=== PATIENT | male | born 1940 | race Hispanic/Latino ===

== ENCOUNTER → 2019-10-09 | Outpatient (CLI) | payer OTHER ==
[~2019-10-09] MED LIST: AMLO10TA7 PO; CEFTRIAXONE SODIUM 1 GM IVP SCH; DOCU-116 PO; METO50TA18 PO; PRAV20TA4 PO
== END | disposition home or self-care (01) ==
LOC: RAH 11:02
PROVIDERS: ATTEND Family Medicine
DX: I70.0 Atherosclerosis of aorta (principal); H53.2 Diplopia; I12.9 Hypertensive chronic kidney disease with stage 1 through stage 4 chronic kidney disease, or unspecified chronic kidney disease; N18.9 Chronic kidney disease, unspecified
CPT/HCPCS: 93880

== ENCOUNTER → 2021-11-24 | Outpatient (CLI) | payer OTHER ==
[~2021-11-24] MED LIST changes: +AMLO-258 PO; -AMLO10TA7 PO; -CEFTRIAXONE SODIUM 1 GM IVP SCH
[2021-11-24 12:51] LABS: ALBUMIN 4.1 g/dL (3.5-5.0); BILIRUBIN,TOTAL 0.5 mg/dL (0.2-1.0); CREATININE 1.9 mg/dL (0.5-1.5); POTASSIUM 4.6 mmol/L (3.5-5.1); TOTAL PROTEIN, SERUM 7.7 g/dL (6.0-8.3)
== END | disposition home or self-care (01) ==
LOC: LAB 08:37
PROVIDERS: ATTEND Internal Medicine Cardiovascular Disease
DX: I10 Essential (primary) hypertension (principal)
CPT/HCPCS: 36415; 80053

== ENCOUNTER → 2021-12-07 | Outpatient (CLI) | payer OTHER ==
[~2021-12-07] MED LIST changes: +IOHEXOL 350 MG/ML 100ML INFUS..BTL IV ONE
== END | disposition home or self-care (01) ==
LOC: RAH 10:25
PROVIDERS: ATTEND Internal Medicine Cardiovascular Disease
DX: I77.811 Abdominal aortic ectasia (principal); I71.4 Abdominal aortic aneurysm, without rupture; I70.0 Atherosclerosis of aorta; K76.9 Liver disease, unspecified; D18.03 Hemangioma of intra-abdominal structures; Q25.46 Tortuous aortic arch; N28.1 Cyst of kidney, acquired; N26.1 Atrophy of kidney (terminal)
CPT/HCPCS: 74174; Q9967

== ENCOUNTER → 2022-11-03 | Outpatient (CLI) | payer OTHER ==
[~2022-11-03] MED LIST changes: -IOHEXOL 350 MG/ML 100ML INFUS..BTL IV ONE
[2022-11-03 15:49] LABS: CREATININE 2.5 mg/dL (0.5-1.5)
== END | disposition home or self-care (01) ==
LOC: LAB 11:56
PROVIDERS: ATTEND Internal Medicine Cardiovascular Disease
DX: I13.0 Hypertensive heart and chronic kidney disease with heart failure and stage 1 through stage 4 chronic kidney disease, or unspecified chronic kidney disease (principal); N18.2 Chronic kidney disease, stage 2 (mild); I71.40 Abdominal aortic aneurysm, without rupture, unspecified
CPT/HCPCS: 36415; 82565; 84520

== ENCOUNTER → 2022-12-25 | Outpatient (CLI) | payer OTHER ==
[2022-12-25 16:52] LABS: ALBUMIN 3.6 g/dL (3.5-5.0); CREATININE 2.4 mg/dL (0.5-1.5); POTASSIUM 4.7 mmol/L (3.5-5.1); TOTAL PROTEIN, SERUM 6.7 g/dL (6.0-8.3)
== END | disposition home or self-care (01) ==
LOC: LAB 15:45
PROVIDERS: ATTEND Internal Medicine Cardiovascular Disease
DX: I12.9 Hypertensive chronic kidney disease with stage 1 through stage 4 chronic kidney disease, or unspecified chronic kidney disease (principal); N18.32 Chronic kidney disease, stage 3b; I73.9 Peripheral vascular disease, unspecified
CPT/HCPCS: 36415; 80053; 83880

== ENCOUNTER → 2023-01-06 | Outpatient (CLI) | payer OTHER | END | disposition home or self-care (01) | LOC: SHCH 08:22 | PROVIDERS: ATTEND Internal Medicine Cardiovascular Disease | DX: I87.2 Venous insufficiency (chronic) (peripheral) (principal) | CPT/HCPCS: 93970 ==

== ENCOUNTER → 2023-01-13 | Outpatient (CLI) | payer OTHER | END | disposition home or self-care (01) | LOC: SHCH 09:27 | PROVIDERS: ATTEND Internal Medicine Cardiovascular Disease | DX: I71.40 Abdominal aortic aneurysm, without rupture, unspecified (principal) | CPT/HCPCS: 93978 ==

== ENCOUNTER → 2023-07-27 | Outpatient (CLI) | payer OTHER | END | disposition home or self-care (01) | LOC: SHCH 07:42 | PROVIDERS: ATTEND Internal Medicine Cardiovascular Disease | DX: I71.40 Abdominal aortic aneurysm, without rupture, unspecified (principal) | CPT/HCPCS: 93978 ==

== ENCOUNTER → 2023-12-10 | Outpatient (CLI) | payer OTHER | END | disposition home or self-care (01) | LOC: SHCH 08:00 | PROVIDERS: ATTEND Internal Medicine Cardiovascular Disease | DX: I71.40 Abdominal aortic aneurysm, without rupture, unspecified (principal) | CPT/HCPCS: 93978 ==

== ENCOUNTER → 2024-05-20 | Outpatient (CLI) | payer OTHER ==
--- NOTE | 2024-05-26 00:47 | HMCSR ---
APPROVED REPORT Duplex Results A/PTransverseLongitudinalVelocityWaveform Proximal Aorta 1.99cm2.21cm2.24cm79.30 cm/sec Mid Aorta 3.04cm2.86cm3.01cm41.40 cm/sec Distal Aorta 5.11cm5.51cm5.40cm21.40 cm/sec Rt. Common Iliac Artery1.58cm1.38cm1.31cm69.20 cm/sec Lt. Common Iliac Artery 1.48cm1.39cm1.29cm86.10 cm/sec Techologist Impression There is evidence of an infrarenal abdominal aortic aneurysm measuring largest at 5.11 cm x 5.51 cm x 5.4 cm. The distal abdominal aorta appears tortuous with mild intraluminal thrombus. The bilateral common iliac arteries appear patent and normal in size. Conclusion There is a large abdominal aortic aneurysm in the distal aorta that measures 5.2 x 5.6 x 5.5 cm. There appears to be intraluminal thrombus within the aneurysm. The bilateral common iliac arteries appear patent and normal in size. The aneurysm has grown in size from July 27, 2023, when it measured 5.2 x 4.7 x 4.6 cm. Clinical correlation is advised. Conclusion There is a large abdominal aortic aneurysm in the distal aorta that measures 5.2 x 5.6 x 5.5 cm. There appears to be intraluminal thrombus within the aneurysm. The bilateral common iliac arteries appear patent and normal in size. The aneurysm has grown in size from July 27, 2023, when it measured 5.2 x 4.7 x 4.6 cm. Clinical correlation is advised.
== END | disposition home or self-care (01) ==
LOC: SHCH 08:02
PROVIDERS: ATTEND Internal Medicine Cardiovascular Disease
DX: I71.40 Abdominal aortic aneurysm, without rupture, unspecified (principal)
CPT/HCPCS: 93978

== ENCOUNTER → 2024-05-26 | Outpatient (CLI) | payer OTHER ==
[2024-05-26 16:28] LABS: CREATININE 2.2 mg/dL (0.5-1.3); POTASSIUM 5.2 mmol/L (3.5-5.1)
== END | disposition home or self-care (01) ==
LOC: LAB 15:05
PROVIDERS: ATTEND Internal Medicine Cardiovascular Disease
DX: I73.9 Peripheral vascular disease, unspecified (principal)
CPT/HCPCS: 36415; 80048

== ENCOUNTER 2024-05-31 20:01 | Emergency (ER) | payer OTHER ==
[~2024-05-31] VITALS: Ht 180.3 cm; Wt 68.9 kg
[2024-05-31] MEDS: hydrALAZine 20MG/ML VIAL IV ONE ×2 (20:15→21:19)
--- NOTE | 2024-05-31 20:21 | ERN ---
ED Note History of Present Illness Stated Complaint: HTN, HEADACHE Chief Complaint: Hypertension Time Seen by MD: 20:17 Dictation: This is an 84-year-old male who presented to the emergency room with complaints of high blood pressure. Apparently he is normally checks his blood pressure every day and as usual when he had a slight frontal headache upon his blood pressure check it was 200/100. Given this he was concerned and came into the ER for further evaluation. He denied any blurred vision diplopia motor weakness seizure activity. Also denied any facial droop slurred speech. Blood pressure is 189/100 heart rate 67 respirations 18 temperature 99.4 with a pulse oximetry of 97% on room air His chronic medical problems include hypertension, chronic kidney disease and en larged aorta details are unclear Allergies: Coded Allergies: No Known Allergies (Unverified Allergy, Unknown, 05/31/24) Home Meds Active Scripts Docusate Sodium (Colace) 100 Mg Capsule, 100 MG PO BID for 14 Days, #28 CAP 0 Refills Prov:JOAN LOPEZ NP 04/19/19 Reported Medications Metoprolol Tartrate (Metoprolol Tartrate) 50 Mg Tablet, 50 MG PO AM, TAB 12/22/14 Pravastatin Sodium (Pravastatin Sodium) 20 Mg Tablet, 20 MG PO AM, TAB 15 Amlodipine Besylate (Amlodipine Besylate) 10 Mg Tablet, 10 MG PO AM, TAB 12/22/14 Past Medical History Past Medical History: Hypertension, Renal Disese, Other Additional Past Medical Hx: ENLARGED AORTA Surgical History: None Family History: Negative Social History: Negative RN Note Reviewed/Agreed w/PFSH: Yes Review of System Dictation Constitutional: Negative for fever,chills, and weight loss Eyes: Negative for injury, pain,redness, and discharge ENT: Negative for injury,pain or swelling Cardiovascular: Negative for chest pain, palpitations, and edema Respiratory: Negative for shortness of breath, cough, and wheezing, Abdomen/GI: Negative for abdominal pain, nausea, vomiting, diarrhea, and constipation Back: Negative for injury and pain : Negative for injury, bleeding and discharge MS/Extremity: Negative for injury and deformity Skin: Negative for rash, and discoloration Neuro: Negative for headache, weakness, numbness, tingling, and seizure Psych: Negative for suicide ideation, homicidal ideation, and hallucinations Initial Vital Sign VS Vital Signs Date Time Temp Pulse Resp B/P (MAP) Pulse Ox O2 Delivery O2 Flow Rate FiO2 05/31/24 20:03 99.3 67 18 189/100 97 Room Air 05/31/24 20:13 0 21 Physical Exam Dictation General: awake, alert, NAD Head/Face: Normocephalic, atraumatic Eyes: PERRL, EOMI, vision at baseline ENT: oral cavity clear, TMs clear, no signs of infection Neck: Trachea midline, supple, no nuchal rigidity Cardiovascular: RRR, normal S1/S2, No MRGs, no JVD Respiratory: CTAB, no respiratory distress, No rales or wheezes Abdomen: Soft, non-tender, non-distended, normal bowel sounds, no guarding or rebound. Skin: Warm, dry, normal turgor, no rash MS/Extremity: Pulses equal, no cyanosis, neurovascular intact, FROM Neuro: COAx4, GCS 15, strength 5/5, CN 2-12 intact, normal cerebellar exam, normal gait, Psych: Normal behavior, mood, and affect normal Extremities-trace edema without any palpable cords, Homans sign is negative Results (Laboratory/Radiology) Laboratory/Radiology Laboratory Tests Test 05/31/24 20:10 05/31/24 21:24 White Blood Count 6.8 K/uL (4.8-10.8) Red Blood Count 3.35 MIL/uL (4.50-6.20) L Hemoglobin 11.0 g/dL (14.0-18.0) L Hematocrit 33.0 % (42-54) L Mean Corpuscular Volume 98.5 fL (79-99) Mean Corpuscular Hemoglobin 32.8 pg (27.0-33.0) Mean Corpuscular Hemoglobin Concent 33.3 g/dL (32.0-36.0) Red Cell Distribution Width 13.2 % (11.0-15.5) Platelet Count 104 K/uL (130-400) L Mean Platelet Volume 12.3 fL (7.5-10.5) H Immature Granulocyte % (Auto) 0.4 % (0-1) Neutrophils (%) (Auto) 57.7 % (40.0-77.0) Lymphocytes (%) (Auto) 21.5 % (21.0-51.0) Monocytes (%) (Auto) 8.6 % (3.0-13.0) Eosinophils (%) (Auto) 11.1 % (0.0-8.0) H Basophils (%) (Auto) 0.7 % (0.0-5.0) Neutrophils # (Auto) 3.9 K/uL (1.8-7.7) Lymphocytes # (Auto) 1.5 K/uL (1.0-4.8) Monocytes # (Auto) 0.6 K/uL (0.1-1.0) Eosinophils # (Auto) 0.75 K/uL (0.00-0.70) H Basophils # (Auto) 0.05 K/uL (0.00-0.20) Absolute Immature Granulocyte (auto 0.03 K/uL (0-1) Nucleated Red Blood Cells 0.0 % (0.0-0.19) White Cell Morphology Comment See comments Prothrombin Time 11.4 SEC (9.6-11.6) Prothromb Time International Ratio 1.06 (0.85-1.15) Activated Partial Thromboplast Time 30.5 SEC (26.3-35.5) Sodium Level 142 mmol/L (136-145) Potassium Level 4.6 mmol/L (3.5-5.1) Chloride Level 108 mmol/L (101-111) Carbon Dioxide Level 25 mmol/L (21-32) Blood Urea Nitrogen 36 mg/dL (7-18) H Creatinine 2.8 mg/dL (0.5-1.3) H Glomerular Filtration Rate Calc 22 mL/min (>90) Random Glucose 95 mg/dL (70-105) Total Calcium 8.1 mg/dL (8.5-10.1) L Troponin I High Sensitivity 12 ng/L (4-75) B-Type Natriuretic Peptide 268 pg/mL (0-100) H Urine Color COLORLESS (YELLOW) Urine Appearance CLEAR (CLEAR) Urine pH 6.5 (5.0-8.0) Urine Specific [place] 1.005 (1.001-1.031) Urine Protein NEGATIVE mg/dL (NEGATIVE) Urine Glucose (UA) NEGATIVE mg/dL (NEGATIVE) Urine Ketones NEGATIVE mg/dL (NEGATIVE) Urine Occult Blood NEGATIVE (NEGATIVE) Urine Nitrate NEGATIVE (NEGATIVE) Urine Bilirubin NEGATIVE mg/dL (NEGATIVE) Urine Urobilinogen 0.2 mg/dL (0.2-1.0) Urine Leukocyte Esterase NEGATIVE Angélica/uL Urine RBC 2-5 /HPF (0-1) H Urine WBC 0-1 /HPF (0-1) Urine Bacteria None /HPF (None Seen) Labs Reviewed?: Yes EKG Comment: Twelve lead EKG done on 05/31/2024 at 8:11 p.m. showed a sinus rhythm with a heart rate of 55 FL 157 QRS 94, QT/QTC 447/428. Impression sinus bradycardia with nonspecific ST-T changes noted. Left anterior fascicular block possible. Interpreted by ER MD Dr. Wong X-RAY Comment: PATIENT: BELA HAMLIN MR#: [id number] : 1940 SEX: M AGE: 84 LOCATION: [facility] ORDER 12 STATUS: REG ER REPORT#: [id number] SERVICE 11 REASON: HYPERTENSION ORDERING PHYSICIAN: SHEELA WONG MD PROCEDURE: CXR1VW - CHEST 1VW INDICATION: HYPERTENSION TECHNIQUE: CHEST 1VW COMPARISON: 12/29/2011 FINDINGS/IMPRESSION: Prominent bilateral interstitial markings which may represent bronchitis or vascular congestion in the proper clinical setting. Cardiac silhouette is within normal limits. Mild degenerative changes of the spine. The visualized upper abdomen appears unremarkable. DICTATED BY: MOISE MACHADO MD DATE: 05/31/242127 ELECTRONICALLY SIGNED BY: MOISE MACHADO MD DATE: 05/31/242130 ED Course ED Course Orders Procedure Category Date Status Time 12 Lead Ekg Tracing- EKG 05/31/24 Logged Technical 20:12 Cbc With Differential LAB 05/31/24 Complete 20:12 Basic Metabolic Panel LAB 05/31/24 Complete 20:12 Pt And Ptt LAB 05/31/24 Complete 20:12 Troponin I High LAB 05/31/24 Complete Sensitivity 20:12 B-Type Natriuretic LAB 05/31/24 Complete Peptide 20:12 Chest 1vw RAD 05/31/24 Resulted 20:12 Hydralazine 20mg Inj PHA 05/31/24 Complete (Apresoline 20mg In 20:30 Hydralazine 20mg Inj PHA 05/31/24 Complete (Apresoline 20mg In 20:14 Urinalysis Profile LAB 05/31/24 Complete 20:23 Hydralazine 20mg Inj PHA 05/31/24 Complete (Apresoline 20mg In 21:30 Current Medications Medications (Trade) Dose Ordered Sig/Danna Route PRN Reason Start Time Stop Time Status Last Admin Dose Admin Hydralazine HCl (APRESOLine 20MG INJ) 10 mg ONCE ONCE IV 05/31/24 20:30 05/31/24 20:31 DC 05/31/24 20:15 Hydralazine HCl (APRESOLine 20MG INJ) 20 mg ONCE ONCE IV 05/31/24 21:30 05/31/24 21:31 DC 05/31/24 21:19 Hydralazine HCl (APRESOLine 20MG INJ) 20 mg STK-MED ONCE .ROUTE 05/31/24 20:14 05/31/24 20:14 DC Vital Signs Date Time Temp Pulse Resp B/P (MAP) Pulse Ox O2 Delivery O2 Flow Rate FiO2 05/31/24 21:39 98.2 56 16 159/75 98 Room Air* 0 21 05/31/24 20:47 98.2 60 16 178/85 98 Room Air* 0 21 05/31/24 20:13 97.9 57 18 201/92 98 Room Air* 0 21 05/31/24 20:03 99.3 67 18 189/100 97 Room Air We will perform diagnostic labs, advanced imaging and administer medications according to the patient's complaint. Once the results are available, will review and personally interpreted the labs to rule out any acute life- threatening emergency the trach require immediate intervention and treatment. I will then re-evaluate the patient after treatment and diagnostic exams have return to determine whether the patient requires any further testing, can safely be discharged home or need further admission to hospital for additional treatment and evaluation. Reviewed labs CBC showed mild anemia which is chronic. BNP 7 showed a BUN and creatinine of 36 and 2.8 which is about the baseline. Patient responded very well to low-dose hydralazine and blood pressure improved significantly and he wanted to be discharged to home to follow up with his primary care physician. Medical Decision Making MDM MDM: Differential diagnosis: Uncontrolled hypertension, hypertensive urgency, hype rtensive heart disease, diastolic dysfunction Rationale: Tests considered and ordered secondary to shared decision making include: Previous outside records reviewed: Old ER visits. Risk of complication and/or morbidity or mortality of patient management: None Medications-Per medication reconciliation Need for hospitalization: Patient does not meet criteria for hospitalization. Need for emergency major/minor surgery: No There are no social concerns with this patient. Prescription drug management Prescriptions will include symptomatic care Patient's prior external medical records from other ER visits were reviewed by me as indicated. Prior testing and results from previous visits were reviewed. Prior tests were taken into account with medical decision making and resource utilization, independent historian/historians were used to obtain complete medical history. I independently interpreted the test that were performed, results were reviewed by me and considered findings on radiology if ordered. Medical management and examination interpretation discussions were had by me with other qualified healthcare professionals as indicated for the patient's care. Problem List Problem List: (1) Hypertensive urgency (2) Uncontrolled hypertension (3) Chronic kidney disease DX & DISP Disposition: Discharge Departure Impression: Primary Impression: Uncontrolled hypertension Additional Impressions: Hypertensive urgency, Chronic kidney disease (CKD) Condition: Stable Additional Instructions: Patient and the caregiver have been informed of all the diagnostic tests and the imaging conducted during the today's visit to the emergency room and has verbalized understanding of the results I have personally reviewed and interpreted all diagnostic exams performed here in the ER today as well as the vital signs documented by the nursing staff. The patient is now being discharged to home and should follow up with the primary care physician or the specialist as directed by the ER staff. Follow-up with primary care provider in 1 to 2 days. Take medications as directed here in the emergency room. Okay to continue home medications unless otherwise discussed during your visit in the emergency room today. Return to your nearest emergency room if symptoms worsen or if there is no improvement. Call 911 if you need immediate assistance. Take Tylenol or Motrin [id number] as needed and if no contraindications are present. Increase oral hydration. A wound culture or urine culture was ordered here in the emergency room department please follow-up with primary care provider and advise them to get repeat ports from our facility. If you had any [place] wrap/splints that were applied here, please do not remove them until you see your primary care or specialty. If patient continues to have increasing episodes of hypertension, primary care physician to consider PRN clonidine if appropriate Also reasonable to pursue outpatient polysomnography to evaluate untreated CAITY as a cause of uncontrolled hypertension. Referrals: ENRIQUE PATEL MD (PCP) SHEELA WONG MD May 31, 2024 20:21
[2024-05-31] MEDS: hydrALAZine 20MG/ML VIAL ONE (20:22)
[2024-05-31 20:38] LABS: BASOPHILS # (AUTO) 0.05 K/uL (0.00-0.20); BASOPHILS % (AUTO) 0.7 % (0.0-5.0); EOSINOPHILS # (AUTO) 0.75 K/uL (0.00-0.70); EOSINOPHILS % (AUTO) 11.1 % (0.0-8.0); IMMATURE GRANULOCYTE ABSOLUTE 0.03 K/uL (0-1); LYMPHOCYTES # (AUTO) 1.5 K/uL (1.0-4.8); LYMPHOCYTES % (AUTO) 21.5 % (21.0-51.0); MEAN CORPUSCULAR HEMOGLOBIN 32.8 pg (27.0-33.0); MEAN CORPUSCULAR HGB CONC 33.3 g/dL (32.0-36.0); MEAN CORPUSCULAR VOLUME 98.5 fL (79-99); MONOCYTES # (AUTO) 0.6 K/uL (0.1-1.0); MONOCYTES % (AUTO) 8.6 % (3.0-13.0); NEUTROPHILS # (AUTO) 3.9 K/uL (1.8-7.7); NEUTROPHILS % (AUTO) 57.7 % (40.0-77.0); PLATELET COUNT (AUTO) 104 K/uL (130-400); RED BLOOD CELL COUNT(AUTO) 3.35 MIL/uL (4.50-6.20); RED CELL DISTRIBUTION WIDTH 13.2 % (11.0-15.5); WHITE BLOOD COUNT (AUTO) 6.8 K/uL (4.8-10.8)
[2024-05-31 20:47] LABS: CREATININE 2.8 mg/dL (0.5-1.3); POTASSIUM 4.6 mmol/L (3.5-5.1)
[2024-05-31 20:52] LABS: INR 1.06 (0.85-1.15); PROTHROMBIN TIME 11.4 SEC (9.6-11.6)
[2024-05-31 20:54] LABS: PARTIAL THROMBOPLASTIN TIME 30.5 SEC (26.3-35.5)
[2024-05-31 20:57] LABS: B-TYPE NATRIURETIC PEPTIDE 268 pg/mL (0-100)
--- NOTE | 2024-05-31 21:31 | HMCIMG ---
INDICATION: HYPERTENSION TECHNIQUE: CHEST 1VW COMPARISON: 12/29/2011 FINDINGS/IMPRESSION: Prominent bilateral interstitial markings which may represent bronchitis or vascular congestion in the proper clinical setting. Cardiac silhouette is within normal limits. Mild degenerative changes of the spine. The visualized upper abdomen appears unremarkable.
[2024-05-31 21:39] VITALS: BP 159/75; PULSE 56; RESP 16; TEMP 98.3; O2SAT 98
[2024-05-31 21:42] LABS: APPEARANCE,URINE CLEAR (CLEAR); BILIRUBIN,URINE NEGATIVE (NEGATIVE); COLOR,URINE COLORLESS (YELLOW); GLUCOSE, URINE (UA) NEGATIVE (NEGATIVE); KETONES,URINE NEGATIVE (NEGATIVE); LEUKOCYTE ESTERASE ,URINE NEGATIVE Leu/uL (NEGATIVE); NITRATE,URINE NEGATIVE (NEGATIVE); OCCULT BLOOD,URINE NEGATIVE (NEGATIVE); PH,URINE 6.5 (5.0-8.0); PROTEIN,URINE NEGATIVE (NEGATIVE); UROBILINOGEN,URINE 0.2 mg/dL (0.2-1.0)
[2024-05-31 21:43] LABS: ADD UA MICROSCOPIC YES
[2024-05-31 21:44] LABS: WBC,URINE 0-1 /HPF (0-1)
--- NOTE | 2024-06-01 06:59 | EKG ---
[facility] Test Date: 2024-05-31 Test Time: 20:11:24 Pat Name: BELA HAMLIN Department: ED Room: Gender: M Special Events Assistant: [id number] : 1940 Requested By: SHEELA RODRIGUEZ Order Number: [id number] Reading MD: Mirta Curiel Measurements Intervals [place] Rate: 55 P: 61 NV: 157 QRS: -46 QRSD: 94 T: 44 QT: 447 QTc: 428 Interpretive Statements Sinus rhythm LAD, consider left anterior fascicular block Compared to ECG 04/17/2019 19:51:43 Sinus bradycardia no longer present Electronically Signed On 06-01-2024 08:20:56 TUCKPOINTER by Mirta Curiel Please click the below link to view image of tracing.
== END 2024-05-31 22:42 | disposition home or self-care (01) ==
LOC: EDH 20:01
DX: I12.9 Hypertensive chronic kidney disease with stage 1 through stage 4 chronic kidney disease, or unspecified chronic kidney disease (principal); N18.9 Chronic kidney disease, unspecified; I16.0 Hypertensive urgency; Z79.899 Other long term (current) drug therapy
CPT/HCPCS: 99285; 96374; 71045; 84484; 80048; 83880; 85025; 85610; 85730; 81001; 36415; 96376; 93005; J0360 ×2

== ENCOUNTER 2024-06-01 14:30 | Emergency (ER) | payer OTHER ==
[~2024-06-01] VITALS: Ht 180.3 cm; Wt 69.9 kg
[2024-06-01 15:53] VITALS: BP 154/74; PULSE 57; RESP 20; TEMP 98.5; O2SAT 98
--- NOTE | 2024-06-01 15:58 | ERN ---
General Chief Complaint: Hypertension Stated Complaint: HYPERTENSION Time Seen by MD: 14:32 Source: patient History of Present Illness Initial Comments Patient is a an 84-year-old male coming in to be evaluated for elevated blood pressure. Per family member and patient he was diagnosed with hypertension many years ago has been on the same medications but noticed that two weeks ago he started having increased episodes hypertension. Per patient he was seen here yesterday was given some medications for hypertension and was discharged. He states he checked his blood pressure and was in the 200 systolic he was then jolly cked his blood pressure again in his in the 150s. In triage patient's blood pressure has been in the 160s. Allergies: Coded Allergies: No Known Allergies (Unverified Allergy, Unknown, 05/31/24) Home Meds Active Scripts Docusate Sodium (Colace) 100 Mg Capsule, 100 MG PO BID for 14 Days, #28 CAP 0 Refills Prov:JOAN LOPEZ NP 04/19/19 Reported Medications Metoprolol Tartrate (Metoprolol Tartrate) 50 Mg Tablet, 50 MG PO AM, TAB 12/22/14 Pravastatin Sodium (Pravastatin Sodium) 20 Mg Tablet, 20 MG PO AM, TAB 15 Amlodipine Besylate (Amlodipine Besylate) 10 Mg Tablet, 10 MG PO AM, TAB 12/22/14 Past Medical History Past Medical History: Hypertension, Renal Disese, Other Medical History Other: ENLARGED AORTA Past Surgical History: None Family History Family History: Negative Social History Social History: Negative ROS Dictation CONSTITUTIONAL: No chills, no fever, no weakness, no diaphoresis, no malaise. HEAD/FACE: No signs of trauma. EENT: No eye pain, no blurred vision, no tearing, no double vision, no ear pain, no ear discharge, no nose pain, no nasal congestion, no throat pain, no throat swelling, no mouth pain. RESPIRATORY: No cough, no orthopnea, no SOB, no stridor, no wheezing. CARDIOVASCULAR: No chest pain, no edema, no palpitations, no syncope. GASTROINTESTINAL/ABDOMINAL: No abdominal pain, no constipation, no diarrhea, no nausea, no vomiting. GENITOURINARY: No abnormal discharge, no dysuria, no frequent urination, no hematuria. No complaints of pain in the genitals. MUSCULOSKELETAL: No back pain, no gout, no joint pain, no joint swelling, no muscle pain, no muscle stiffness, no neck pain. INTEGUMENTARY: No change in color, no change in hair/nails, no dryness, no lesion, no lumps, no rash. NEUROLOGICAL/PSYCH: No anxiety, not depressed, no emotional problem, no headache, no numbness, no pre-existing deficit, no history of seizures, no tremors, no weakness. HEMATOLOGIC/LYMPHATIC: Not anemic, no history of blood clots, no apparent bleeding, no bruising, glands not swollen. All Systems Negative, Except as Noted. Physical Exam Physical Exam Dictation VITAL SIGNS: Reviewed. GENERAL APPEARANCE: Alert, oriented x3, no acute distress, obese. HEAD AND FACE: Non-traumatic. EYES: PERRL, pink conjunctivas, eyelid no trauma, anterior chamber clear. EARS: Pinnas intact and no signs of trauma or erythema. Ear canals clear and no discharge. TMs no erythema. NOSE: No discharge, no bleeding. OROPHARYNX: Mouth normal, teeth no caries, tongue pink. Pharynx clear, no erythema. Tonsils no exudates, no abscesses noted. Mucous membrane moist. NECK: Supple, non-tender, no thyromegaly, no masses, no JVD, no bruits. BREAST: Deferred. CHEST: No tenderness, no crepitus, no paradoxical movement, no retractions. LUNGS: Clear, well-ventilated, symmetric, no rales, no wheezing, no rhonchi, no stridor, good breath sounds bilaterally. HEART: Regular rate, regular rhythm, no murmur, no gallops. VASCULAR: No peripheral edema. ABDOMEN: Soft, positive bowel sounds, nondistended, no guarding, nontender, no rebound, no masses no hepatomegaly, no splenomegaly, no Smith's sign, no hernias. RECTAL: Deferred. GENITAL: Deferred. NEUROLOGICAL: Normal speech, gross motor function intact, gross sensory function intact. MUSCULOSKELETAL: Neck nontender, full range of motion, back nontender, full range of motion. EXTREMITIES: Nontender, full range of motion. SKIN: Color pink, dry, no turgor, no rash, no lacerations, no abrasions, no contusions. LYMPHATICS: Deferred. MDM MDM: Differential diagnosis: Hypertension, chronic hypertension Patient is an 84-year-old gentleman coming in to be evaluated for an abnormal blood pressure. Per patient he does take he was nifedipine which was prescribed by PCP but noticed a blood pressure in 200s. He does use a wrist blood pressure monitor. He states that his son took his blood pressure in his biceps in his blood pressure was 160. I advised him continuing monitor and blood pressure in his biceps and continue with the same medications as well as avoiding caffeine products. Patient will be discharged in stable condition with a diagnosis of chronic hypertension and well checkup visit. Patient is not complaining of any symptoms at the moment. ED Course Vital Signs Date Time Temp Pulse Resp B/P (MAP) Pulse Ox O2 Delivery O2 Flow Rate FiO2 06/01/24 15:53 98.4 57 20 154/74 98 Room Air* 0 21 06/01/24 14:31 99.0 61 14 159/85 99 Room Air 0 DX & DISP Disposition: Discharge Departure Impression: Primary Impression: Well adult exam Condition: Stable Additional Instructions: FOLLOW-UP WITH PRIMARY CARE PROVIDER IN 1 TO 2 DAYS. TAKE MEDICATIONS DIRECTED HERE IN THE EMERGENCY ROOM. OKAY TO CONTINUE HOME MEDICATIONS UNLESS OTHERWISE DISCUSSED DURING YOUR VISIT IN THE EMERGENCY ROOM TODAY. RETURN TO YOUR NEAREST EMERGENCY ROOM IF SYMPTOMS WORSEN OR IF THERE IS NO IMPROVEMENT. CALL 911 IF YOU NEED IMMEDIATE ASSISTANCE. TAKE TYLENOL [id number] NEEDED AND IF NO CONTRAINDICATIONS ARE PRESENT. INCREASE ORAL HYDRATION. A WOUND CULTURE OR URINE CULTURE WAS ORDERED HERE IN THE EMERGENCY ROOM DEPARTMENT PLEASE FOLLOW-UP WITH PRIMARY CARE PROVIDER AND ADVISE THEM TO GET REPEAT PORTS FROM OUR FACILITY. IF YOU HAD ANY [place] WRAP/SPLINTS THAT WERE APPLIED HERE, PLEASE DO NOT REMOVE THEM UNTIL YOU SEE YOUR PRIMARY CARE OR SPECIALTY. Referrals: Referrals: ENRIQUE PATEL MD (PCP) Time of Disposition: 15:58 CTILALY CARDENAS MD Jun 01, 2024 15:58
== END 2024-06-01 16:02 | disposition home or self-care (01) ==
LOC: EDH 14:30
DX: I10 Essential (primary) hypertension (principal)
CPT/HCPCS: 99282

== ENCOUNTER 2024-09-26 20:38 | Emergency (ER) | payer OTHER ==
[~2024-09-26] VITALS: Ht 180.3 cm; Wt 70.3 kg
--- NOTE | 2024-09-26 21:05 | ERN ---
General Chief Complaint: Hypertension Stated Complaint: HYPERTENSION Time Seen by MD: 20:39 Source: patient History of Present Illness Initial Comments Patient is 84-year-old male with a past medical history of renal disease not on dialysis and hypertension. Measured his blood pressure at home and it was high and he comes into have a treated. He has no other symptoms. No chest pain no shortness of breath no mental status changes. He does have a mild headache that is improving since yesterday. He states he was seen here in May for the same chief complaint and he was given a pill and then discharged home. The chart from May states that they measured his blood pressure and it was 160 in the discharge him home. After the dose of hydralazine the patient's blood pressure dropped to 160. At this point patient said what about my neck pain and what about my right arm shy n. He definitely did not tell me about these symptoms when I 1st interviewed him and discussing his case with his nurse she to confirmed that the patient stated plainly he was only here because his blood pressure was high and he had no other symptoms. I have ordered an EKG and a troponin level to rule out cardiac causes for this pain. I explained to the patient that his feeling of throat tightness is not emergent it could be related to some anxiety. It could be related to an early infection, but it is not something that I will workup now. No need for scans or x-rays. Timing/Duration: 24 hours Allergies: Coded Allergies: No Known Allergies (Unverified Allergy, Unknown, 05/31/24) Home Meds Active Scripts Docusate Sodium (Colace) 100 Mg Capsule, 100 MG PO BID for 14 Days, #28 CAP 0 Refills Prov:JOAN LOPEZ NP 04/19/19 Reported Medications Metoprolol Tartrate (Metoprolol Tartrate) 50 Mg Tablet, 50 MG PO AM, TAB 12/22/14 Pravastatin Sodium (Pravastatin Sodium) 20 Mg Tablet, 20 MG PO AM, TAB 12/22/14 Amlodipine Besylate (Amlodipine Besylate) 10 Mg Tablet, 10 MG PO AM, TAB 12/22/14 Past Medical History Past Medical History: Hypertension, Renal Disese, Other Medical History Other: ENLARGED AORTA Past Surgical History: None Family History Family History: Negative Social History Social History: Negative ROS Dictation Review of systems is negative aside from the HPI. No mental status changes no visual changes no chest pain no shortness of breath no abdominal pain no change in renal or bowel habits moves all extremities Physical Exam General Appearance: (+) no apparent distress Orientation: (+) alert Head/Face Trauma: No Eye: bilateral eye normal inspection, bilateral eye PERRL, bilateral eye EOMI Ear, Nose, Throat: (+) hearing grossly normal, (+) normal ENT inspection Neck: (+) normal inspection, (+) supple, (+) no JVD Respiratory: (+) chest non-tender, (+) lungs clear, (+) well ventilated Heart: (+) regular, (+) no gallop Vascular Comment Mild ankle swelling plus one. Bilaterally. Gastrointestinal: (+) soft, (+) non-tender, (+) bowel sound present Back: (+) normal inspection Extremities: (+) normal range of motion Results Laboratory and Microbiology Lab and Micro Result Laboratory Tests Test 09/27/24 00:21 Troponin I High Sensitivity 68 ng/L (4-75) MDM Patient is here because of an isolated high blood pressure measurement here was 185/91. I will give the patient some hydralazine. Patient's blood pressure dropped to 160 systolic and a hydralazine. When I talked to the patient about this he stated that he had throat tightness and right arm pain. The patient on admission clearly stated to me and to the nurse that his only symptom was a high blood pressure and that there were no other symptoms. Given these new results I ordered a stat EKG and a troponin level. They are both normal . I gave the patient an additional 10 mg of hydralazine in his pressure has now stabilized at 160. He can go home. ED Course Orders Procedure Category Date Status Time Hydralazine 20mg Inj PHA 09/26/24 Complete (Apresoline 20mg In 21:30 12 Lead Ekg Tracing- EKG 09/26/24 Logged Technical 22:14 Bedside Troponin-I LAB.ER 09/26/24 In Process (Poc) 22:14 Hydralazine 20mg Inj PHA 09/26/24 Complete (Apresoline 20mg In 22:30 Troponin I High LAB 09/27/24 Complete Sensitivity 00:18 Current Medications Medications (Trade) Dose Ordered Sig/Danna Route PRN Reason Start Time Stop Time Status Last Admin Dose Admin Hydralazine HCl (APRESOLine 20MG INJ) 10 mg ONCE ONCE IV 09/26/24 21:30 09/26/24 21:31 DC 09/26/24 21:29 Hydralazine HCl (APRESOLine 20MG INJ) 10 mg ONCE ONCE IV 09/26/24 22:30 09/26/24 22:31 DC 09/26/24 22:46 Vital Signs Date Time Temp Pulse Resp B/P (MAP) Pulse Ox O2 Delivery O2 Flow Rate FiO2 09/26/24 23:25 97.9 54 18 148/71 99 Room Air* 0 09/26/24 22:46 97.9 54 18 161/75 99 Room Air* 0 09/26/24 22:20 97.9 54 18 156/78 99 Room Air* 0 09/26/24 21:29 54 18 180/85 96 Room Air* 0 09/26/24 20:39 97.9 62 20 183/90 99 Room Air DX & DISP Disposition: Discharge Departure Impression: Primary Impression: Hypertensive urgency Condition: Stable Referrals: ENRIQUE PATEL MD (PCP) MAURIZIO FERRARA MD Sep 26, 2024 21:05
[2024-09-26] MEDS: hydrALAZine 20MG/ML VIAL IV ONE ×2 (21:29→22:46)
[2024-09-27 01:08] VITALS: BP 161/77; PULSE 56; RESP 18; TEMP 97.9; O2SAT 97
--- NOTE | 2024-09-27 11:30 | EKG ---
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
== END 2024-09-27 01:08 | disposition home or self-care (01) ==
LOC: EDH 20:38
DX: I16.0 Hypertensive urgency (principal); I10 Essential (primary) hypertension; Z79.899 Other long term (current) drug therapy
CPT/HCPCS: 99285; 96374; 84484; 96376; 93005; J0360 ×2